=== PATIENT | male | born 1960 | race African-American/Black ===

== ENCOUNTER 2020-10-22 09:40 | Outpatient (REF) | payer OTHER, SELFPAY ==
[2020-10-22 10:40] LABS: Hematocrit 40.1 % (42-52); Hemoglobin 13.1 g/dl (14.0-18.0); Mean Corpuscular HGB Conc 32.7 g/dl (31.0-36.0); Mean Corpuscular Volume 88.9 fL (80-98); Mean Platelet Volume 10.2 fL (9.4-12.4); Platelet Count 223 X10*3/uL (160-400); Red Blood Count 4.51 X10*6/uL (4.60-5.80); Red Cell Distribution Width 12.8 % (11.0-16.0); White Blood Count 4.1 X10*3/uL (4.8-10.8)
[2020-10-22 11:27] LABS: Alanine Aminotransferase 20 U/L (0-40); Alkaline Phosphatase 56 U/L (39-117); Anion Gap 13 (12-20); Aspartate Amino Transferase 17 U/L (5-37); Bilirubin Direct 0.2 mg/dL (0.0-0.5); Bilirubin Total 0.7 mg/dL (0.0-1.0); Blood Urea Nitrogen 12 mg/dL (9-16); Carbon Dioxide 21 mmol/L (22-29); Chloride 109 mmol/L (96-108); Estimated Glomerular Filt Rate > 60; Potassium 4.2 mmol/l (3.3-5.1); Sodium 139 mmol/L (135-145); Total Protein 7.4 g/dL (6.5-8.0)
[2020-10-22 11:36] LABS: Prostate Specific Antigen Scr 2.78 ng/mL (<0.05-4.0)
== END 2020-10-22 09:41 | disposition home or self-care (01) ==
LOC: HO.10HDL 09:40
PROVIDERS: Visit Provider Internal Medicine Gastroenterology
DX: R10.84 Generalized abdominal pain (principal)
CPT/HCPCS: 36415; 80051; 80076; 82565; 84153; 84520; 85027

== ENCOUNTER → 2021-02-24 10:39 | Outpatient (BNVA) | payer OTHER, SELFPAY | PROVIDERS: Visit Provider Urology ==

== ENCOUNTER 2021-05-05 15:12 | Outpatient (REF) | payer OTHER, SELFPAY ==
[2021-05-07 08:12] LABS: Follicle Stimulating Hormone 23.2 mIU/mL (1.6-8.0); Lutenizing Hormone 13.7 mIU/mL (1.5-9.3)
[2021-05-10 09:47] LABS: Testosterone, Total 183 ng/dL (250-1100)
== END 2021-05-05 15:13 | disposition home or self-care (01) ==
LOC: HO.LAB 15:12
PROVIDERS: Visit Provider Urology
DX: E29.1 Testicular hypofunction (principal); N46.9 Male infertility, unspecified; N52.9 Male erectile dysfunction, unspecified
CPT/HCPCS: 36415; 83001; 83002; 84403; 99212

== ENCOUNTER 2021-06-23 15:02 | Outpatient (AMB) | payer OTHER, SELFPAY ==
--- NOTE | 2021-06-23 15:39 | MHC.OFFVIS ---
Intake Intake Visit Reasons: 3 Weeks testo follow up Allergies No Known Allergies Allergy (Verified 08/19/23 09:12) HPI HPI Comments History of Present Illness Details Vidal Baca is a very pleasant . They are a patient of Dr. Dong. At prior visit he had asked about sperm counts Sample today showed no sperm Per the patient he is now in a new relationship would like to have children Will need formal semen analysis This is ordered as well as baseline testosterone Lower Urinary Tract Symptoms: Has been doing well on stay on medication Will need repeat PSA at next visit. Current visit is for further evaluation of, predominate irritative symptoms. Current treatment includes Recent diagnosis for UTI. Treated with antibiotics. . Prostate Symptom Score Moderate (9-19), Bother 3. Symptoms include incomplete emptying, urgency, weak stream, and are progressing. Prior Prostate Score unknown. PSA - PSA in January 2017 4.0 Has had prior prostate biopsy negative 03/08 3.9 09/07 PSA 4.6 07/09 4.6, 11/09 2.8 Erectile dysfunction: He presents today for for continued evaluation and management of erectile dysfunction -has ED prescription. Symptoms have been present for/since years ago. Current treatment includes Viagra/sildenafil - does work. Treatment side effects include none. Prior therapies include oral medications. At this time he experiences erections are partial and adequate for vaginal penetration, that undergo detumesence prior to penetration, JAKI 8-11 Moderate ED. Nocturnal erections do not occur. Currently they are in a stable relationship. Associated problems hypertension Yes diabetes No dyslipidemia Yes depression No stress No decreased libido No pelvic surgery No Overall he is is not satisfied with the current management. Therapeutic plan includes maintaining current therapy [facility] Medical History Hypogonadism in male HTN (hypertension) High cholesterol Gonorrhea Erectile dysfunction History of elevated PSA BPH (benign prostatic hyperplasia) Surgical History History of appendectomy Social History Alcohol intake: current Alcohol intake frequency: holidays/special occasions only Patient Tobacco Use Status: Never used Tobacco Are you DNR?: No Advance Directives: No Advance Directives Information Provided: Yes Review of Systems Const Denies chills and Denies fever(s) Card Reports no additional complaints and Denies syncope Resp Denies cough GI Denies abdominal pain and Denies heartburn Reports as per HPI and Denies change in libido Neuro Denies syncope Psych Denies change in libido Endo Denies change in libido Physical Exam Const General: cooperative, healthy appearing, comfortable and no acute distress Orientation/consciousness: patient oriented x3 HENMT Face and sinus: Yes normal facial exam Mouth: moist mucous membranes Neck Neck: Yes normal visual inspection, Yes full ROM and Yes trachea midline Chest Chest palpation & inspection: normal inspection of the chest Resp Effort & Inspection: normal respiratory effort, able to speak in complete sentences and no respiratory distress GI Inspection: Yes normal to inspection Back/Spine/Pelvis Cervical Spine: normal cervical lordosis Thoracic/Lumbar Spine: thoracic and lumbar spine normal to inspection Skin General skin exam: no rashes or lesions noted Neuro General: patient oriented x3, gait normal, tone normal and moves all extremities Extrem General: Yes normal to inspection and Yes capillary refill normal Assessment & Plan Assessment & Plan (1) Hypogonadism in male: Code(s): E29.1 - Testicular hypofunction Plan Three-month follow-up Medications: New pentoxifylline ER administer with meals 400 mg PO BID 180 tabs 1RF 90 days N46.9 - Male infertility, unspecified Patient Instructions: Imaging studies, laboratory and physical exam results were discussed and reviewed in detail. No major barriers to patient understanding were identified. An opportunity to ask questions regarding the treatment plan was provided. All questions were answered. The patient expressed understanding and agreement with the above treatment plan. The patient is aware they should contact our office by phone for worsening of their current condition or the appearance of new urologic symptoms. Compliance is encouraged with any medications and followup testing that is ordered. It is a privilege to participate in the urologic care of your patient. If you have any questions or concerns regarding treatment for the above conditions, or other urologic issues, please do not hesitate to contact me. The office telephone contact is [phone]. This note is constructed using voice recognition software. While every effort has been made to ensure accuracy presidential helicopter crew chief errors may have been included. Yours sincerely, Dr Sina Holly MD, VAL[facility] - Urology Providers of Expert, Compassionate Care for the Genitourinary System Coding Level of Care Code Est Pt Level 4 (68897) Diagnoses Hypogonadism in male E29.1
== END 2021-06-23 15:56 | disposition home or self-care (01) ==
LOC: HO.HUSH 15:02
PROVIDERS: Visit Provider Urology
DX: E29.1 Testicular hypofunction (principal)
CPT/HCPCS: 99499

== ENCOUNTER → 2021-06-23 15:02 | Outpatient (BNVA) | payer OTHER, SELFPAY | PROVIDERS: Visit Provider Urology ==

== ENCOUNTER → 2021-09-25 10:20 | Outpatient (BNVA) | payer OTHER, SELFPAY | PROVIDERS: Visit Provider Urology ==

== ENCOUNTER 2021-11-04 09:50 | Outpatient (REF) | payer OTHER, SELFPAY | END 2021-11-04 09:51 | disposition home or self-care (01) | LOC: HO.LNP 09:50 | PROVIDERS: Visit Provider Urology | DX: N46.9 Male infertility, unspecified (principal); E29.1 Testicular hypofunction | CPT/HCPCS: 88305; 88313 ==

== ENCOUNTER → 2021-11-24 09:58 | Outpatient (BNVA) | payer OTHER, SELFPAY | PROVIDERS: Visit Provider Urology ==

== ENCOUNTER 2022-01-12 07:53 | Outpatient (REF) | payer OTHER, SELFPAY ==
[2022-01-12 08:39] VITALS: BMI 33.2
[2022-01-12 08:44] VITALS: BP 139/80; PULSE 69; RESP 16; TEMP 36.8; O2SAT 98
[2022-01-12 09:51] VITALS: BP 133/82; PULSE 63; RESP 16; O2SAT 97
--- NOTE | 2022-01-20 09:57 | W.PM.OPN ---
Operative Note Operative Note Date of Service: 01/12/22 Narrative: PreOperative Diagnosis: Male infertility Post Operative Diagnosis: Male infertility Procedure: Left testicular biopsy Surgeon: Dr Sina Holly Anesthesia: Local Indications for procedure: Low sperm count with nonviable forms. Prior right biopsy but appropriate fixative was not used. Recommendation from pathology to repeat an use appropriate fixative. Procedure: After informed consent was verified the patient was brought to the procedure room and placed in a supine position. Anesthesia was administered per protocol. The area was prepped and draped in sterile fashion. Local anesthetic was infiltrated in the cord and on the skin. Skin was opened and dissection performed to the tunica was isolated. The tunica was opened. The testicle was located and stay sutures with 4-0 Vicryl placed. A small incision was made. Material was removed for analysis. Stay sutures were tied down to close the small hole in the testicle Tunica with overlying tissue closed Skin closed with interrupted for chromic sutures Pathology: Testicular biopsy Drains: None
== END 2022-01-12 07:54 | disposition home or self-care (01) ==
LOC: HO.MS 07:53
PROVIDERS: Visit Provider Urology
PROC: (CPT 54505; principal; 2022-01-12 08:00)
DX: N46.9 Male infertility, unspecified (principal)
CPT/HCPCS: 54505; 88305

== ENCOUNTER → 2022-01-20 09:48 | Outpatient (BNVA) | payer OTHER, SELFPAY | PROVIDERS: Visit Provider Urology ==

== ENCOUNTER → 2022-08-17 11:09 | Outpatient (BNVA) | payer OTHER, SELFPAY | PROVIDERS: Visit Provider Urology | DX: N52.9 Male erectile dysfunction, unspecified (principal); N40.0 Benign prostatic hyperplasia without lower urinary tract symptoms | CPT/HCPCS: 99212 ==

== ENCOUNTER 2023-02-07 07:54 | Outpatient (REF) | payer OTHER, SELFPAY ==
[2023-02-07 10:29] LABS: Prostate Specific Antigen 1.88 ng/mL (<0.05-4.0)
[2023-02-12 11:28] LABS: Testosterone, Total 198 ng/dL (250-1100)
== END 2023-02-07 07:55 | disposition home or self-care (01) ==
LOC: HO.LAB 07:54
PROVIDERS: Visit Provider Urology
DX: Z12.5 Encounter for screening for malignant neoplasm of prostate (principal); E29.1 Testicular hypofunction
CPT/HCPCS: 36415; 84153; 84402; 84403

== ENCOUNTER → 2023-02-16 13:10 | Outpatient (BNVA) | payer OTHER, SELFPAY | PROVIDERS: Visit Provider Urology | DX: N52.9 Male erectile dysfunction, unspecified (principal); E29.1 Testicular hypofunction | CPT/HCPCS: 99212 ==

== ENCOUNTER 2023-08-04 16:17 | Outpatient (REF) | payer OTHER, SELFPAY ==
[2023-08-04 16:52] LABS: Hematocrit 38.8 % (42.0-52.0); Hemoglobin 12.9 g/dl (14.0-18.0); Mean Corpuscular HGB Conc 33.2 g/dl (31.0-36.0); Mean Corpuscular Hemoglobin 28.7 pg (27.0-33.0); Mean Corpuscular Volume 86.2 fL (80.0-98.0); Mean Platelet Volume 9.7 fL (9.4-12.4); Platelet Count 222 X10*3/uL (160-400); Red Cell Distribution Width 12.6 % (11.0-16.0); White Blood Count 4.4 X10*3/uL (4.8-10.8)
[2023-08-04 18:17] LABS: Prostate Specific Antigen 1.17 ng/mL (<0.05-4.0)
[2023-08-09 13:58] LABS: Testosterone, Total 167 ng/dL (250-1100)
== END 2023-08-04 16:18 | disposition home or self-care (01) ==
LOC: HO.LAB 16:17
PROVIDERS: Visit Provider Urology
DX: Z12.5 Encounter for screening for malignant neoplasm of prostate (principal); E29.1 Testicular hypofunction
CPT/HCPCS: 36415; 84153; 84403; 85027

== ENCOUNTER 2023-08-19 09:01 | Outpatient (AMB) | payer OTHER, SELFPAY ==
--- NOTE | 2023-08-19 09:09 | MHC.OFFVIS ---
Intake Intake Visit Reasons: 6M PSA/CBC/Testosterone(set) Intake Note: Patient is Present for Follow Up LABS Urology Medication: None Antibiotic Allergies:None Blood Thinners: None Pharmacy: [facility] Allergies No Known Allergies Allergy (Verified 08/19/23 09:12) Medication List - Last Reconciled 08/19/23 by Sina Holly MD amlodipine 10 mg PO DAILY atorvastatin 10 mg PO DAILY carvedilol 3.125 mg PO BID losartan 100 mg PO DAILY lovastatin 40 mg PO DAILY multivitamin 1 tab PO DAILY multivitamin with folic acid 400 mcg (Daily-Isa (with folic acid)) 1 tab PO BEDTIME nifedipine ER 60 mg PO DAILY pantoprazole 40 mg PO DAILY pentoxifylline ER 400 mg PO BID 90 days spironolactone 100 mg PO DAILY spironolactone 50 mg PO DAILY sulfamethoxazole-trimethoprim 800-160 mg (Bactrim DS) 1 tab PO BID 3 days tadalafil 10 mg PO DAILY 90 days tadalafil 20 mg PO Q OTHER DAY PRN 30 days tramadol 50 mg PO Q8H PRN HPI HPI Comments History of Present Illness Details Vidal Baca is a very pleasant [facility] male. He is a patient of Dr. Dong. He is seen for the following urologic issues - lower urinary tract symptoms - erectile dysfunction - male infertility Refill prescription for 10 mg tadalafil daily with 20 mg on demand T a little lower than previously Also with balanitis and needs topical cream Male infertility Prior child in prior relationship He has Wes is trying to have a child with a new partner Baseline evaluation showed low testosterone, high FSH, high LH - 05/11 T 183 FSH 23 LH 13, 02/10 T 200 Fr T 62 P 1.9, 08/13 T 170 Semen analysis performed [facility] - 06/10 no evidence of sperm Testicular biopsy 11/10 right testicle minimal number of seminiferous tubules, 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 Current visit is for further evaluation of, predominate irritative symptoms. Current treatment includes Recent diagnosis for UTI. Treated with antibiotics. . Prostate Symptom Score Moderate (9-19), Bother 3. Symptoms include incomplete emptying, urgency, weak stream, and are progressing. Prior Prostate Score unknown. PSA - PSA in January 2017 4.0 Has had prior prostate biopsy negative 03/08 3.9 09/07 PSA 4.6 07/09 4.6, 11/09 2.8 Erectile dysfunction: He presents today for for continued evaluation and management of erectile dysfunction -has ED prescription. Symptoms have been present for/since years ago. Current treatment includes Viagra/sildenafil - does work. Treatment side effects include none. Prior therapies include oral medications. At this time he experiences erections are partial and adequate for vaginal penetration, that undergo detumesence prior to penetration, JAKI 8-11 Moderate ED. Nocturnal erections do not occur. Currently they are in a stable relationship. Associated problems hypertension Yes diabetes No dyslipidemia Yes depression No stress No decreased libido No pelvic surgery No Overall he is is not satisfied with the current management. Therapeutic plan includes maintaining current therapy [facility] Medical History Hypogonadism in male HTN (hypertension) High cholesterol Gonorrhea Erectile dysfunction History of elevated PSA BPH (benign prostatic hyperplasia) Surgical History History of appendectomy Social History Alcohol intake: current Alcohol intake frequency: holidays/special occasions only Patient Tobacco Use Status: Never used Tobacco Review of Systems Const Denies chills and Denies fever(s) Card Reports no additional complaints and Denies syncope Resp Denies cough GI Denies abdominal pain and Denies heartburn Reports as per HPI and Denies change in libido Neuro Denies syncope Psych Denies change in libido Endo Denies change in libido Physical Exam Const General: cooperative, healthy appearing, comfortable and no acute distress Orientation/consciousness: patient oriented x3 HEENT Face and sinus: Yes normal facial exam Mouth: moist mucous membranes Neck Neck: Yes normal visual inspection, Yes full ROM and Yes trachea midline Chest Chest palpation & inspection: normal inspection of the chest Resp Effort & Inspection: normal respiratory effort, able to speak in complete sentences and no respiratory distress GI Inspection: Yes normal to inspection Back/Spine/Pelvis Cervical Spine: normal cervical lordosis Thoracic/Lumbar Spine: thoracic and lumbar spine normal to inspection Skin General skin exam: no rashes or lesions noted Neuro General: patient oriented x3, gait normal, tone normal and moves all extremities Extrem General: Yes normal to inspection and Yes capillary refill normal Assessment & Plan Assessment & Plan (1) Balanitis: Code(s): N48.1 - Balanitis (2) Erectile dysfunction: Code(s): N52.9 - Male erectile dysfunction, unspecified Plan Balanitis treatment Refill ED meds Orders: Orders Testosterone, Total 6 Months N52.9 - Male erectile dysfunction, unspecified Medications: New clotrimazole-betamethasone 1-0.05 % Apply thin coat 2 times per day 1 appl topical BID 45 grams 0RF 4 weeks N48.1 - Balanitis Patient Instructions: Imaging studies, laboratory and physical exam results were discussed and reviewed in detail. No major barriers to patient understanding were identified. An opportunity to ask questions regarding the treatment plan was provided. All questions were answered. The patient expressed understanding and agreement with the above treatment plan. The patient is aware they should contact our office by phone for worsening of their current condition or the appearance of new urologic symptoms. Compliance is encouraged with any medications and followup testing that is ordered. It is a privilege to participate in the urologic care of your patient. If you have any questions or concerns regarding treatment for the above conditions, or other urologic issues, please do not hesitate to contact me. The office telephone contact is [phone]. This note is constructed using voice recognition software. While every effort has been made to ensure accuracy sand hauler errors may have been included. Yours sincerely, Dr Sina Holly MD, [facility] - Urology Providers of Expert, Compassionate Care for the Genitourinary System Coding Level of Care Code Est Pt Level 4 (18864) Diagnoses Balanitis N48.1 Erectile dysfunction N52.9
== END 2023-08-19 09:42 | disposition home or self-care (01) ==
PROVIDERS: Visit Provider Urology
DX: N48.1 Balanitis (principal); N52.9 Male erectile dysfunction, unspecified
CPT/HCPCS: 99214

== ENCOUNTER → 2023-08-19 09:01 | Outpatient (BNVA) | payer OTHER, SELFPAY | PROVIDERS: Visit Provider Urology | DX: N48.1 Balanitis (principal); N52.9 Male erectile dysfunction, unspecified | CPT/HCPCS: 99212 ==

== ENCOUNTER 2023-12-06 10:01 | Day surgery (SDC) | payer OTHER, SELFPAY ==
--- NOTE | 2023-12-05 10:03 | HO.ANESPROP2 ---
Documented by User: Sheree Booth NP 12/05/23 10:03 HPI - Anesthesia Eval Consult details Narrative: 63yo M for Upper Endoscopy and Colonoscopy [facility], [facility] Active Problems Active Problems: All Active Problems (Updated 08/19/23 @ 09:45 by Sina Holly MD) Balanitis (Acute) Hypogonadism in male (Acute) Male infertility (Acute) Erectile dysfunction (Acute) BPH (benign prostatic hyperplasia) (Acute) Past Medical History Medical History Hypogonadism in male HTN (hypertension) High cholesterol Gonorrhea Erectile dysfunction History of elevated PSA BPH (benign prostatic hyperplasia) Surgical History Surgical History History of appendectomy Social History Social History Alcohol intake: current Alcohol intake frequency: holidays/special occasions only Patient Tobacco Use Status: Never used Tobacco Are you DNR?: No Advance Directives: No Advance Directives Information Provided: Yes Meds Allergies Allergy/AdvReac Type Severity Reaction Status Date / Time No Known Allergies Allergy Verified 08/19/23 09:12 Home Medications Medication Instructions Recorded Confirmed Last Taken Type carvedilol 3.125 mg tablet 3.125 mg PO BID 02/24/21 08/19/23 Unknown History losartan 100 mg tablet 100 mg PO DAILY 02/24/21 08/19/23 Unknown History amlodipine 10 mg tablet 10 mg PO DAILY 05/05/21 08/19/23 Unknown History lovastatin 40 mg tablet 40 mg PO DAILY 05/05/21 08/19/23 Unknown History pantoprazole 40 mg tablet,delayed 40 mg PO DAILY 05/05/21 08/19/23 Unknown History release spironolactone 100 mg tablet 100 mg PO DAILY 05/05/21 08/19/23 Unknown History multivitamin with folic acid 400 1 tab PO BEDTIME 09/25/21 08/19/23 Unknown History mcg tablet (Daily-Isa (with folic acid)) multivitamin 1 tab PO DAILY 01/20/22 08/19/23 Unknown History nifedipine 60 mg tablet,extended 60 mg PO DAILY 01/20/22 08/19/23 Unknown History release 24 hr atorvastatin 10 mg tablet 10 mg PO DAILY 08/13/22 08/19/23 Unknown History spironolactone 50 mg tablet 50 mg PO DAILY 08/13/22 08/19/23 Unknown History Exam Pertinent Lab Results Pertinent Lab Results: Laboratory Tests 08/04/23 16:26 WBC 4.4 L Hgb 12.9 L Hct 38.8 L Plt Count 222 Assessment and Plan Assessment Anesthesia Assessment: Chart Reviewed Documented by User: Victoriano Reddy MD 12/06/23 11:15 [facility] Past Medical History Medical History Hypogonadism in male HTN (hypertension) High cholesterol Gonorrhea Erectile dysfunction History of elevated PSA BPH (benign prostatic hyperplasia) Family History Family history of problems with anesthesia: No Surgical History Surgical History History of appendectomy History of Problems with Anesthesia: No Social History Social History Alcohol intake: current Alcohol intake frequency: holidays/special occasions only Patient Tobacco Use Status: Never used Tobacco Are you DNR?: No Advance Directives: No Advance Directives Information Provided: Yes Meds Allergies Allergy/AdvReac Type Severity Reaction Status Date / Time No Known Allergies Allergy Verified 08/19/23 09:12 Home Medications Medication Instructions Recorded Confirmed Last Taken Type carvedilol 3.125 mg tablet 3.125 mg PO BID 02/24/21 08/19/23 Unknown History losartan 100 mg tablet 100 mg PO DAILY 02/24/21 08/19/23 Unknown History amlodipine 10 mg tablet 10 mg PO DAILY 05/05/21 08/19/23 Unknown History lovastatin 40 mg tablet 40 mg PO DAILY 05/05/21 08/19/23 Unknown History pantoprazole 40 mg tablet,delayed 40 mg PO DAILY 05/05/21 08/19/23 Unknown History release spironolactone 100 mg tablet 100 mg PO DAILY 05/05/21 08/19/23 Unknown History multivitamin with folic acid 400 1 tab PO BEDTIME 09/25/21 08/19/23 Unknown History mcg tablet (Daily-Isa (with folic acid)) multivitamin 1 tab PO DAILY 01/20/22 08/19/23 Unknown History nifedipine 60 mg tablet,extended 60 mg PO DAILY 01/20/22 08/19/23 Unknown History release 24 hr atorvastatin 10 mg tablet 10 mg PO DAILY 08/13/22 08/19/23 Unknown History spironolactone 50 mg tablet 50 mg PO DAILY 08/13/22 08/19/23 Unknown History Assessment and Plan Final Anesthetic Review Family History of Problems with Anesthesia: No History of Problems with Anesthesia: No
--- NOTE | ~2023-12-06 | FL_ITS ---
EXAMINATION: FL Barium Enema CLINICAL INFORMATION: Incomplete colonoscopy COMPARISON: None TECHNIQUE: A mixture of barium and Gastrografin was administered through the rectum via a rectal tube. Spot images were then taken to assess the colon. FINDINGS: The barium traveled from the rectum, throughout the colon, into the cecum, with visualization of the ileocecal valve. No reflux through the valve was identified into the terminal ileum. At least moderate diverticulosis is seen in the distal descending and proximal sigmoid colon. Mild diverticulosis is noted in the right hemicolon. No colonic masses or strictures are noted FLUOROSCOPY TIME: 7 minutes 7 seconds Number of Spot Images: 45 Number of Cine: 4 DOSE AREA PRODUCT: 2244 uGy-m2 (microgray-meter squared) FL/FL barium enema IMPRESSION: 1. No masses or strictures are noted in the colon 2. Moderate diverticulosis of the distal descending and proximal sigmoid colon, and mild diverticulosis of the right hemicolon. 3. Competent ileocecal valve. This procedure was performed by Paulie Horne PA-C, and supervised by Dr. Vasquez
[2023-12-06 10:17] VITALS: BMI 33.9
[2023-12-06 10:44] VITALS: BP 133/76; PULSE 64; RESP 16; TEMP 36.1; O2SAT 99
[2023-12-06] MEDS: Lactated Ringers 1,000 ML 100 ML IVCONT (10:45)
--- NOTE | 2023-12-06 11:19 | HO.ANESPROP2 ---
HPI - Anesthesia Eval Consult details Narrative: for EGD and colonoscopy PMFSH Active Problems Active Problems: All Active Problems Balanitis (Acute) Hypogonadism in male (Acute) Male infertility (Acute) Erectile dysfunction (Acute) BPH (benign prostatic hyperplasia) (Acute) Past Medical History Medical History Hypogonadism in male HTN (hypertension) High cholesterol Gonorrhea Erectile dysfunction History of elevated PSA BPH (benign prostatic hyperplasia) Family History Family history of problems with anesthesia: No Surgical History Surgical History History of appendectomy History of Problems with Anesthesia: No Social History Social History Alcohol intake: current Alcohol intake frequency: holidays/special occasions only Patient Tobacco Use Status: Never used Tobacco Are you DNR?: No Advance Directives: No Advance Directives Information Provided: Yes Meds Allergies Allergy/AdvReac Type Severity Reaction Status Date / Time No Known Allergies Allergy Verified 08/19/23 09:12 Active Medications: Current Medications Fentanyl (Fentanyl Citrate/Pf 100 Mcg/2 Ml Vial) 50 mcg IVPUSH Q5M PRN; Protocol PRN Reason: Pain, Severe (Pain Scale 7-10) Lactated Ringer's (Lr) 1,000 mls @ 100 mls/hr IVCONT .Q10H MASTER Last Admin: 12/06/23 10:45 Dose: 100 mls/hr Ondansetron HCl (Ondansetron Hcl 4 Mg/2 Ml Vial) 4 mg IVPUSH ONCE PRN PRN Reason: Nausea and Vomiting Home Medications Medication Instructions Recorded Confirmed Last Taken Type carvedilol 3.125 mg tablet 3.125 mg PO BID 02/24/21 08/19/23 Unknown History losartan 100 mg tablet 100 mg PO DAILY 02/24/21 08/19/23 Unknown History amlodipine 10 mg tablet 10 mg PO DAILY 05/05/21 08/19/23 Unknown History lovastatin 40 mg tablet 40 mg PO DAILY 05/05/21 08/19/23 Unknown History pantoprazole 40 mg tablet,delayed 40 mg PO DAILY 05/05/21 08/19/23 Unknown History release spironolactone 100 mg tablet 100 mg PO DAILY 05/05/21 08/19/23 Unknown History multivitamin with folic acid 400 1 tab PO BEDTIME 09/25/21 08/19/23 Unknown History mcg tablet (Daily-Isa (with folic acid)) multivitamin 1 tab PO DAILY 01/20/22 08/19/23 Unknown History nifedipine 60 mg tablet,extended 60 mg PO DAILY 01/20/22 08/19/23 Unknown History release 24 hr atorvastatin 10 mg tablet 10 mg PO DAILY 08/13/22 08/19/23 Unknown History spironolactone 50 mg tablet 50 mg PO DAILY 08/13/22 08/19/23 Unknown History Exam Height,Weight and Vital Signs: Height 5 ft 6 in Weight 95.254 kg Last Vital Signs Temp 96.9 F 12/06/23 10:44 Pulse 64 12/06/23 10:44 Resp 16 12/06/23 10:44 BP 133/76 12/06/23 10:44 Pulse Ox 99 12/06/23 10:44 O2 Del Method Room Air 12/06/23 10:44 Airway Mallampati Class: II Partial: Upper and Lower Loose/Missing/Broken Teeth: Yes, Upper and Lower Heart: ok Lungs: ok Assessment and Plan Assessment Anesthesia Assessment: Anesthesia Plan Discussed and Chart Reviewed Final Anesthetic Review Family History of Problems with Anesthesia: No History of Problems with Anesthesia: No NPO: Yes ASA Class: II Final Preanesthetic Review: No Changes in Pt Med Stat, Meds/Allgs Chart Reviewed, Consent Obtained/Reviewed and Anes Risks/Benef Reviewed Patient Risk: Intermediate Procedure Risk: Intermediate Anesthetic Plan Anesthetic Plan: Agree w/ Assess. and Plan and TIVA Disposition: Standard PACU
--- NOTE | 2023-12-06 11:43 | P.HPSUR_ITS ---
Pre-Procedural Eval Section A Date of Service: 12/06/23 Section B Chief Complaint: Encounter for screening for malignant neoplasm of Details of Present Illness: see H&P no changes Relevant Family History (Specify if Yes): No Relevant Social History: None Present Medications: see Short Stay Collaborative assessment Medical History: No relevant PMH History of Previous Operations: No relevant previous surgery Allergies: Allergies Allergy/AdvReac Type Severity Reaction Status Date / Time No Known Allergies Allergy Verified 08/19/23 09:12 Review of Systems Sugical H&P ROS: Negative: Constitution, Cardiovascular, Respiratory, Neurolo gical, Psychiatric, Hem-Onc, Allergic/Immunologic, Gastrointestinal, Genitourinary, Musculoskeletal, Integumentary, Endocrine and Eyes/Ears/Nose/Throat Exam Surgical H&P Exam: Normal: HEENT, Normal: Heart, Normal: Lungs, Normal: Extremities, Normal: Abdomen, Normal: Skin and Normal: Neurological Plan Diagnosis/Plan: Unchanged I have reviewed the history and physical and performed a pertinent physical examination on my patient. No changes have occurred unless specified. Time Spent With Patient Time: Total time managing care of this patient today ____ minutes.
[2023-12-06 12:47] VITALS: BP 117/76; PULSE 70; RESP 16; TEMP 36.3; O2SAT 97
[2023-12-06 13:02] VITALS: BP 140/77; PULSE 58; RESP 16; O2SAT 95
--- NOTE | 2023-12-06 13:08 | OP_ITS ---
DATE OF SERVICE: 12/06/2023 SURGEON: Huber Levy MD INDICATIONS: Colon cancer screening and gastroesophageal reflux disease. PREOPERATIVE DIAGNOSIS: POSTOPERATIVE DIAGNOSIS: PROCEDURE PERFORMED: Colonoscopy to the right colon, upper endoscopy with biopsy. ESTIMATED BLOOD LOSS: COMPLICATIONS: ANESTHESIA: Monitored anesthesia care. ASSISTANTS: SPECIMENS: DESCRIPTION OF PROCEDURE: A history and physical was performed. The risks and benefits of the procedure were explained to the patient. Informed consent was obtained. The patient was placed in the left lateral decubitus position. A digital rectal exam was performed and was found to be normal. The Olympus pediatric video colonoscope was introduced into the rectum and advanced to the right colon. The scope could not be advanced to the cecum due to looping in the sigmoid despite application of abdominal wall pressure and repositioning of the patient. Examination was performed. The scope was removed. He tolerated the procedure well and was taken to the recovery area in stable condition. FINDINGS: There was some liquid stool coating the mucosa, mainly in the transverse colon and sigmoid. This was washed and suctioned. No polyps were identified. There was a 20 mm lipoma in the vicinity of the hepatic flexure. Retroflexed examination showed some internal hemorrhoids. It was estimated that 95% of the colon was examined. Upper endoscopy: 1. Esophagus: The esophagus was normal. There was no esophagitis. Biopsies were obtained from the EG junction. 2. Stomach: The stomach showed no evidence of masses or ulcers. There were multiple benign less than 5 mm appearing polyps in the body and fundus consistent with fundic gland polyps. Antral biopsies were obtained to rule out H pylori. 3. Duodenum: The bulb and 2nd portion were normal. IMPRESSION: 1. Normal colonoscopy to the right colon. 2. Gastroesophageal reflux disease. RECOMMENDATION: 1. Follow up the biopsy results. 2. Barium enema if the patient is agreeable for further evaluation of the cecal area. 3. Repeat colonoscopy is recommended in 10 years for average risk individuals. MD BERTIN Sanders/WILLIAN / [id number]
[2023-12-06 13:17] VITALS: BP 140/82; PULSE 68; RESP 16; O2SAT 97
[2023-12-06 13:32] VITALS: BP 137/70; PULSE 67; RESP 16; O2SAT 97
[2023-12-06 14:39] VITALS: BP 149/81; PULSE 56; RESP 16; TEMP 36.3; O2SAT 96
== END 2023-12-06 15:17 | disposition home or self-care (01) ==
PROVIDERS: PCP Internal Medicine; Visit Provider Internal Medicine Gastroenterology
PROC: (CPT 45378; principal; 2023-12-06 11:40)
DX: Z12.11 Encounter for screening for malignant neoplasm of colon (principal); K64.8 Other hemorrhoids; D17.5 Benign lipomatous neoplasm of intra-abdominal organs; K59.00 Constipation, unspecified; K21.9 Gastro-esophageal reflux disease without esophagitis; K31.7 Polyp of stomach and duodenum; N40.0 Benign prostatic hyperplasia without lower urinary tract symptoms; I10 Essential (primary) hypertension; E78.00 Pure hypercholesterolemia, unspecified; Z79.899 Other long term (current) drug therapy
CPT/HCPCS: 45378; 43239; 74270; 88305; 88342; J1596; J2704

== ENCOUNTER → 2023-12-06 13:20 | Outpatient (BNV) | payer OTHER, SELFPAY | PROVIDERS: PCP Internal Medicine; Visit Provider Radiology Diagnostic Radiology | DX: Z53.9 Procedure and treatment not carried out, unspecified reason (principal) | CPT/HCPCS: 74270 ==

== ENCOUNTER 2025-01-18 09:32 | Outpatient (AMB) | payer OTHER, SELFPAY ==
--- NOTE | 2025-01-18 09:34 | A.OFFVIS_ITS ---
Intake Visit Reasons: 1Y Review Follow up(multiple R/S Due to no lab) Intake Note: Pt presents to the office today for a 1 year review follow up due to multiple r/s for labs not being done. Allergies No Known Allergies Allergy (Verified 01/18/25 09:34) HPI Comments Details: Vidal Baca is a very pleasant [facility] male. He is a patient of Dr. Dong. He is seen for the following urologic issues - lower urinary tract symptoms - erectile dysfunction - male infertility Last seen 08/10/2023 Needs refill for erectile dysfunction meds Vidal showed me photos of his new baby boy DNA has confirmed it is his child Male infertility Prior child in prior relationship He has Wes is trying to have a child with a new partner Baseline evaluation showed low testosterone, high FSH, high LH - 05/11 T 183 FSH 23 LH 13, 02/10 T 200 Fr T 62 P 1.9, 08/13 T 170 Semen analysis performed [facility] - 06/10 no evidence of sperm Testicular biopsy 11/10 right testicle minimal number of seminiferous tubules, 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 Current visit is for further evaluation of, predominate irritative symptoms. Current treatment includes Recent diagnosis for UTI. Treated with antibiotics. . Prostate Symptom Score Moderate (9-19), Bother 3. Symptoms include incomplete emptying, urgency, weak stream, and are progressing. Prior Prostate Score unknown. PSA - PSA in January 2017 4.0 Has had prior prostate biopsy negative 03/08 3.9 09/07 PSA 4.6 07/09 4.6, 11/09 2.8 Erectile dysfunction: He presents today for for continued evaluation and management of erectile dysfunction -has ED prescription. Symptoms have been present for/since years ago. Current treatment includes Viagra/sildenafil - does work. Treatment side effects include none. Prior therapies include oral medications. At this time he experiences erections are partial and adequate for vaginal penetration, that undergo detumesence prior to penetration, JAKI 8-11 Moderate ED. Nocturnal erections do not occur. Currently they are in a stable relationship. Associated problems hypertension Yes diabetes No dyslipidemia Yes depression No stress No decreased libido No pelvic surgery No Overall he is is not satisfied with the current management. Therapeutic plan includes maintaining current therapy [facility] Medical History Hypogonadism in male HTN (hypertension) High cholesterol Gonorrhea Erectile dysfunction History of elevated PSA BPH (benign prostatic hyperplasia) Surgical History History of appendectomy Social History Alcohol intake: current Alcohol intake frequency: holidays/special occasions only Patient Tobacco Use Status: Never used Tobacco Review of Systems Const Denies chills and Denies fever(s) Card Reports no additional complaints and Denies syncope Resp Denies cough GI Denies abdominal pain and Denies heartburn Reports as per HPI and Denies change in libido Neuro Denies syncope Psych Denies change in libido Endo Denies change in libido Physical Exam Const General: cooperative, healthy appearing, comfortable and no acute distress Orientation/consciousness: patient oriented x3 HEENT Face and sinus: Yes normal facial exam Mouth: moist mucous membranes Neck Neck: Yes normal visual inspection, Yes full ROM and Yes trachea midline Chest Chest palpation & inspection: normal inspection of the chest Resp Effort & Inspection: normal respiratory effort, able to speak in complete sentences and no respiratory distress GI Inspection: Yes normal to inspection Back/Spine/Pelvis Cervical Spine: normal cervical lordosis Thoracic/Lumbar Spine: thoracic and lumbar spine normal to inspection Skin General skin exam: no rashes or lesions noted Neuro General: patient oriented x3, gait normal, tone normal and moves all extremities Extrem General: Yes normal to inspection and Yes capillary refill normal Assessment & Plan Assessment & Plan (1) Erectile dysfunction: Code(s): N52.9 - Male erectile dysfunction, unspecified Category: Medical (2) Male infertility: Comment: Biopsy with hypospermatogenesis Code(s): N46.9 - Male infertility, unspecified Category: Medical Plan Twelve month follow-up PSA Medications: Refilled tadalafil 20 mg PO Q OTHER DAY 30 days PRN 30 tabs 1RF sexual activity N52.9 - Male erectile dysfunction, unspecified tadalafil 10 mg PO DAILY 90 days 90 tabs 1RF sexual activity N52.01 - Erectile dysfunction due to arterial insufficiency Patient Instructions: This note is constructed using voice recognition software. While every effort has been made to ensure accuracy order to delivery supervisor errors may have been included. Imaging studies, laboratory and physical exam results were discussed and reviewed in detail. No major barriers to patient understanding were identified. An opportunity to ask questions regarding the treatment plan was provided. All questions were answered. The patient expressed understanding and agreement with the above treatment plan. The patient is aware they should contact our office by phone for worsening of their current condition or the appearance of new urologic symptoms. Compliance is encouraged with any medications and followup testing that is ordered. It is a privilege to participate in the urologic care of your patient. If you have any questions or concerns regarding treatment for the above conditions, or other urologic issues, please do not hesitate to contact me. The office telephone contact is [phone]. Sincerely, Dr Sina Holly MD, [facility] - Urology Compassionate Specialist Care for the Genitourinary System Coding Level of Care Code Est Pt Level 4 (60583) Diagnoses Erectile dysfunction N52.9 Male infertility N46.9
--- OUTSIDE RECORDS SUMMARY | 2025-01-18 10:19 | XMS_ITS | Clinical Summary ---
Author Organization [address] [facility] Address [address] [place] [address] Phone Care Team Providers Care Inspector Open Die Name Role Phone Andrea Lees MD Primary Care Provider [phone] Allergies Active Allergy Reactions Criticality Noted Date Comments Codeine Nausea And Vomiting 08/06/2022 Oxycodone-Acetaminophen Nausea And Vomiting Medications atorvastatin calcium (LIPITOR ORAL) Take 10 mg by mouth. Active multivitamin (Multiple Vitamins) tablet Take by mouth. Active amLODIPine (NORVASC) 10 mg tablet Take 10 mg by mouth daily. Active carvediloL (COREG) 3.125 mg tablet Take 3.125 mg by mouth 2 times daily (with meals). Active losartan (COZAAR) 100 mg tablet Take 100 mg by mouth daily. Active mupirocin (BACTROBAN) 2 % ointment Apply topically to wound dialy 4 Active pantoprazole (PROTONIX) 20 mg EC tablet Take 1 Tablet by mouth daily. Active silver sulfADIAZINE (SILVADENE, SSD) 1 % cream Apply topically to nail bed daily 4 Active spironolactone (ALDACTONE) 50 mg tablet Take 50 mg by mouth daily. Active diazePAM (VALIUM) 5 mg tablet Take 1 tablet (5 mg total) by mouth every 12 (twelve) hours if needed for muscle spasms (pain) for up to 8 doses. Max Daily Amount: 10 mg 8 tablet 4 Active Active Problems Problem Noted Date Diagnosed Date Abnormal stress test 08/11/2022 Overview (10/16/2024): Last Assessment & Plan: Patient was sent for stress test that came back as abnormal due to electrical changes without significant symptoms. Patient has multiple risk for coronary artery disease and complaints of chest discomfort that he says when he has is a pulling sensation its not necessarily exertional in nature. Because of this abnormality which I think is probably secondary to LVH from hypertension unguinal send him for stress echocardiogram. If the stress echocardiogram is normal no further cardiac testing is necessary at this time. Chest pain 08/06/2022 Overview (10/16/2024): Last Assessment & Plan: Patient with vague chest discomfort. We will plan on a stress echocardiogram. His routine stress test showed ST changes which most likely are secondary to LVH if this stress echocardiogram is normal then no further cardiac evaluation is necessary. HLD (hyperlipidemia) 08/06/2022 Palpitations 08/06/2022 Overview (10/16/2024): Last Assessment & Plan: Patient states that the palpitations that he was complaining about are no longer an issue Constipated 06/13/2012 Other specified symptoms and signs involving the digestive system and abdomen 09/26/2006 Abdominal pain, left lower quadrant 09/26/2006 Heartburn 09/26/2006 Abdominal pain, generalized 09/09/2006 Essential hypertension, benign 06/29/2006 Surgical History Surgery Date Site/Laterality Comments APPENDECTOMY 2015 PROCEDURE: HISTORICAL APPENDECTOMY Medical History Medical History Date Comments GERD without esophagitis DX:GERD without esophagitis Prostate enlargement DX:Prostate enlargement Anxiety disorder, unspecified DX :Anxiety disorder, unspecified Body mass index (BMI) of 35. 0 to 35.9 in adult DX:Body mass index (BMI) of 35.0 to 35.9 in adult Hypertensive chronic kidney disease with stage 1 through stage 4 chronic kidney disease, or unspecified chronic kidney disease 08/06/2022 DX:Hypertensive chronic kidn ey disease with stage 1 through stage 4 chronic kidney disease, or unspecified chronic kidney disease Anemia DX:Anemia Hyperglycemia DX:Hyperglycemia Other chest pain DX:Other chest pain BPH (benign prostatic hyperplasia) DX:BPH (benign prostatic hyperplasia) Acid reflux DX:Acid reflux IFG (impaired fasting glucose) D X:IFG (impaired fasting glucose) Family History Medical History Relation Name Comments Hypertension Father Hypertension Mother Relation Name Status Comments Father Mother Social History Tobacco Use Types Packs/Day Years Used Date Smoking Tobacco: Never Smokeless Tobacco: Never Alcohol Use Standard Drinks/Week Comments Yes 0 (1 standard drink = 0.6 oz pur e alcohol) Sex and Gender Information Value Date Recorded Sex Assigned at Not on file Legal Sex Male 2:21 PM EST Gender Identity Not on file Sexual Orientation Not on file Obstetrics History Last Filed Vital Signs Vital Sign Reading Time Taken Comments Blood Pressure 132/65 10/17/2024 2:39 AM EST Pulse 55 10/17/2024 2:39 AM EST Temperature 36.6 ??C (97.9 ??F) 10/17/2024 2:39 AM ES T Respiratory Rate 18 10/17/2024 2:39 AM EST Oxygen Saturation 99% 10/17/2024 2:39 AM EST Inhaled Oxygen Concentration - - Weight 93 kg (205 lb) 10/17/2024 12:51 AM EST Height 167.6 cm (5' 6 ) 10/17/2024 12:51 AM EST Body Mass Index 33.09 10/17/2024 12:51 AM EST Plan of Treatment Health Maintenance Due Date Last Done Comments Zoster Vaccines (1 of 2) 2011 Pneumococcal Vaccine: 50+ Years (2 of 2 - PCV) 07/23/2011 07/23/2010 DTaP,Tdap,and Td Vaccines (2 - Td or Tdap) 06/27/2019 06/27/2009 Cholesterol Screening (Lipid Panel) 10/20/2022 Colorectal Cancer Screening: Colonoscopy 10/20/2022 Depression Screening 10/20/2022 HIV Screening 10/20/2022 Hepatitis C Screening 10/20/2022 Social Influencers of Health Screening 10/20/2022 Hypertension/CHF/CAD Annual BMP Blood Test 10/17/2025 10/17/2024, 06/22/2006 RSV Immunization Patients 60+ Years Old (1 - 1-dose 75+ series) 2036 Pneumococcal Vaccine: Pediatrics (0 to 5 Years) and At-Risk Patients (6 to 64 Years) Aged Out 07/23/2010 No longer eligible based on patient's age to complete this topic COVID-19 Vaccine Completed 08/04/2024, , 09/03/2022, Additional history exists Influenza Vaccine Completed 08/04/2024, , 09/03/2022, Additional history exists HIB Vaccines Aged Out No longer eligi ble based on patient's age to complete this topic HPV Vaccines Aged Out No longer eligi ble based on patient's age to complete this topic Hepatitis A Vaccines Aged Out No long er eligible based on patient's age to complete this topic Hepatitis B Vaccines Aged Out No long er eligible based on patient's age to complete this topic IPV Vaccines Aged Out No longer eligi ble based on patient's age to complete this topic MMR Vaccines Aged Out No longer eligi ble based on patient's age to complete this topic Meningococcal ACWY Vaccine Aged Out N o longer eligible based on patient's age to complete this topic Meningococcal B Vacine Aged Out No lo nger eligible based on patient's age to complete this topic RSV Immunization Patients Under 20 months Aged Out No longer eligible based on patient's age to complete this topic Varicella Vaccines Aged Out No longer eligible based on patient's age to complete this topic Procedures Procedure Name Priority Date/Time Associated Diagnosis Comments COMPREHENSIVE METABOLIC PANEL STAT 10/17/2024 12:59 AM EST from Last 3 Months or Most Recently Relevant to Health Maintenance Results * (ABNORMAL) Comprehensive metabolic panel (10/17/2024 12:59 AM EST) Sodium 142 133 - 145 mmol/L LAB CHEMISTRY METHOD 10/17/2024 1:31 AM [facility] Potassium 3.3(L) 3.5 - 5.5 mmol/L LAB CHEMISTRY METHOD 10/17/2024 1:31 AM [facility] Chloride 111(H) 96 - 110 mmol/L LAB CHEMISTRY METHOD 10/17/2024 1:31 AM [facility] CO2 26 21 - 32 mmol/L LAB CHEMISTRY METHOD 10/17/2024 1:31 AM [facility] Anion Gap 5 3 - 11 LAB CHEMISTRY METHOD 10/17/2024 1:31 AM [facility] Glucose 130(H) 70 - 100 mg/dL LAB CHEMISTRY METHOD 10/17/2024 1:31 AM [facility] BUN 15 5 - 25 mg/dL LAB CHEMISTRY METHOD 10/17/2024 1:31 AM [facility] Creatinine 1.52(H) 0.70 - 1.30 mg/dL LAB CHEMISTRY METHOD 10/17/2024 1:31 AM [facility] eGFR 51(L) >=60 mL/min/1. 73m2 LAB CHEMISTRY METHOD 10/17/2024 1:31 AM [facility] Comment:Calculation based on the??Chronic Kidney Disease Epidemiology Collaboration (CKD-EPI) equation refit??without adjustment for race. BUN/Creatinine Ratio 9.9 LAB CHEMISTRY METHOD 10/17/2024 1:31 AM [facility] Calcium 8.1(L) 8.5 - 10.5 mg/dL LAB CHEMISTRY METHOD 10/17/2024 1:31 AM [facility] AST (SGOT) 18 10 - 42 unit/L LAB CHEMISTRY METHOD 10/17/2024 1:31 AM [facility] ALT (SGPT) 25 10 - 60 unit/L LAB CHEMISTRY METHOD 10/17/2024 1:31 AM [facility] Alkaline Phosphatase 66 42 - 121 unit/L LAB CHEMISTRY METHOD 10/17/2024 1:31 AM [facility] Total Protein 6.8 6.0 - 8.0 g/dL LAB CHEMISTRY METHOD 10/17/2024 1:31 AM [facility] Albumin 3.3 3.2 - 5.0 g/dL LAB CHEMISTRY METHOD 10/17/2024 1:31 AM [facility] Total Bilirubin 0.5 0.0 - 1.4 mg/dL LAB CHEMISTRY METHOD 10/17/2024 1:31 AM [facility] Blood Venous blood specimen / Unknown Venipuncture / Unknown 10/17/2024 12:59 AM EST 10/17/2024 1:04 AM EST us Maciel Moulton MD LAB BLOOD ORDERABLES Final Res ult [facility] [address] [place] [address], [place] [phone] from Last 3 Months or Most Recently Relevant to Health Maintenance Insurance [facility] MEDICAID ADVANTAGE Care Teams Inspector Open Die Relationship Specialty Start Date End Date Andrea Lees MD [address] [place] [address] PCP - General Internal Medicine 08/11/22
--- OUTSIDE RECORDS SUMMARY | 2025-01-18 10:19 | XMS_ITS ---
Author Organization [facility] Address [address] [place] [address] Care Team Providers Care Marine Consultant Name Role Phone Jamaal HAWTHORNE, Ludwig Primary Care Provider Huber Lebron Jr REASON FOR VISIT pathology/x-ray Encounters Encounter Location Date Provider Diagnosis [facility] [address] [place] [id number] 12/15/2023 Huber Levy Jr PLAN OF TREATMENT No Information
--- OUTSIDE RECORDS SUMMARY | 2025-01-18 10:19 | XMS_ITS | Encounter Summary ---
Author Organization [facility] Address [address] [address] Phone Care Team Providers Care Stringer Machine Tender Name Role Phone Ludwig Hinton MD Primary Care Provider [phone] Encounter Details Date Type Department Care Team (Late st Contact Info) Description 12/16/2024 Office Communication [facility] [address] [address] Jayne Smith ARNP [address] [address] Social History Tobacco Use Types Packs/Day Years Used Date Smoking Tobacco: Never Smokeless Tobacco: Never Alcohol Use Standard Drinks/Week Comments Yes 0 (1 standard drink = 0.6 oz pure alcohol) Alcoholic Drinks/day: Occasional social drink Sex and Gender Information Value Date Recorded Sex Assigned at Not on file Legal Sex Male 5:19 PM EST Gender Identity Not on file Sexual Orientation Not on file documented as of this encounter Plan of Treatment Upcoming Encounters Date Type Department Care Team (Late st Contact Info) Description 02/07/2025 8:15 AM EDT Office [facility] [address] [address] Jayne Smith ARNP [address] [address] 02/19/2025 9:45 AM EDT [facility] [address] [address] Jayne Smith ARNP [address] [address] documented as of this encounter Visit Diagnoses Not on filedocumented in this encounter Care Teams Stringer Machine Tender Relationship Specialty Start Date End Date Ludwig Hinton MD [address] [place] [address] PCP - General Internal Medicine 04/10/24 documented as of this encounter
--- OUTSIDE RECORDS SUMMARY | 2025-01-18 10:20 | XMS_ITS | Clinical Summary ---
Author Organization [facility] Address [address] [place] [phone] Phone Care Team Providers Care Social Human Services Assistants Name Role Phone Ludwig Hinton MD Primary Care Provider Allergies Active Allergy Reactions Criticality Noted Date Comments Oxycodone-Acetaminophen 04/29/2021 Medications Multiple Vitamin (Multivitamin Iron-Free) tablet Take 1 tablet by mouth 1 (one) time each day 1 Active pantoprazole (PROTONIX) 40 MG EC tablet Take 1 tablet by mouth 1 (one) time each day 1 Active sildenafil (VIAGRA) 100 MG tablet Take 1 tablet by mouth 1 (one) time each day 0 Active ibuprofen (ADVIL,MOTRIN) 600 MG tablet Take 600 mg by mouth every 6 (six) hours if needed 1 Active lovastatin (MEVACOR) 40 MG tablet Take 1 tablet (40 mg total) by mouth at bed time 30 tablet 5 2 Active amLODIPine (NORVASC) 10 MG tablet TAKE 1 TABLET(10 MG) BY MOUTH 1 TIME EACH DAY 30 tablet 5 3 Active atorvastatin (LIPITOR) 80 MG tablet Take 80 mg by mouth 3 11/23/19 26 Active losartan (COZAAR) 100 MG tabletIndications :Chronic kidney disease, stage 2 (mild),Essential (primary) hypertension Take 1 tablet (100 mg total) by mouth 1 (one) time each day 90 tablet 3 5 12/16/19 26 Active carvedilol (COREG) 3.125 MG tabletIndications :Chronic kidney disease, stage 2 (mild),Essential (primary) hypertension Take 1 tablet (3.125 mg total) by mouth in the morning and 1 tablet (3.125 mg total) in the evening. Take with meals. 180 tablet 3 5 Active spironolactone (Aldactone) 50 MG tabletIndications :Chronic kidney disease, stage 2 (mild),Essential (primary) hypertension Take 1 tablet (50 mg total) by mouth 1 (one) time each day 30 tablet 5 5 06/14/20 25 Active Active Problems Problem Noted Date Diagnosed Date Vitamin D deficiency, not otherwise specified Chronic kidney disease, stage 2 (mild) Abnormal results of function studies of other organs and systems 12/15/2021 Bloating 12/15/2021 Gastro-esophageal reflux disease without esophag itis 12/15/2021 Generalized abdominal pain 12/15/2021 Left upper quadrant pain 12/15/2021 Benign prostatic hyperplasia 04/29/2021 Hypertensive renal disease 04/29/2021 Hypertensive disorder 04/29/2021 Hyperuricemia 04/29/2021 Hypokalemia 04/29/2021 Simple renal cyst 04/29/2021 Essential (primary) hypertension 04/29/2021 Resolved Problems Problem Noted Date Diagnosed Date Resolved Date Chronic kidney disease stage 3 04/29/2021 04/10/2024 Stage 3a chronic kidney disease 04/29/2021 04/10/2024 Encounters Date Type Department Care Team Description 12/16/2024 Office Communication [facility] [address] [phone] Jayne Smith ARNP 12/12/2024 8:30 AM EST Office Visit [facility] [address] [facility] [address] [place] [phone] Jayne Smith ARNP Chronic kidney disease, stage 2 (mild) (Primary Dx); Essential (primary) hypertension; Vitamin D deficiency, not otherwise specified 10/21/2024 Orders Only [facility] [address] [place] [phone] Jayne Smith ARNP Chronic kidney disease, stage 2 (mild); Essential (primary) hypertension from Last 3 Months Immunizations Name Administration Dates Next Due Influenza, Unspecified 07/22/2021,09/03/2020 Pfizer SARS-COV-2 09/03/2021,12/22/2020,12/01/19 21 Pneumococcal Polysaccharide 07/23/2010 Td, Unspecified 06/27/2009 Family History Medical History Relation Comments Hypertension Father Hypertension Mother Stroke Mother Relation Status Comments Father Mother Social History Tobacco [...] on file Sexual Orientation Not on file Last Filed Vital Signs Vital Sign Reading Time Taken Comments Blood Pressure 140/88 12/12/2024 8:39 AM EST Pulse 61 12/12/2024 8:39 AM EST Temperature - - Respiratory Rate - - Oxygen Saturation 99% 12/12/2024 8:39 AM EST Inhaled Oxygen Concentration - - Weight 97.1 kg (214 lb) 12/12/2024 8:39 AM EST Height 167.6 cm (5' 6 ) 09/18/2019 12:01 PM EDT Body Mass Index 34.54 09/18/2019 12:01 PM EDT Plan of Treatment Upcoming Encounters Date Type Department Care Team (Late st Contact Info) Description 02/07/2025 8:15 AM EDT Office Visit [facility] [address] [phone] Jayne Smith ARNP [address] [phone] 02/19/2025 9:45 AM EDT Office Visit [facility] [address] [phone] Jayne Smith ARNP [address] [phone] Health Maintenance Due Date Last Done Comments Colorectal Cancer Screening: Annual FOBT 2010 Colorectal Cancer Screening: Colonoscopy 2010 Colorectal Cancer Screening: Sigmoidoscopy 2010 Pneumococcal Vaccine: Pediatrics (0 to 5 Years) and At-Risk Patients (6 to 64 Years) (2 of 2 - PCV) 07/23/2011 07/23/2010 Influenza Vaccine (#1) 2024 3, 09/03/2022, 09/03/2021, Additional history exists Hepatitis B Vaccine Aged Out No longe r eligible based on patient's age to complete this topic Procedures Procedure Name Priority Date/Time Associated Diagnosis Comments URINE ALBUMIN / CREATININE RATIO Routine 12/12/2024 9:13 AM EST Chronic kidney disease, stage 2 (mild) Essential (primary) hypertension MAGNESIUM Routine 12/12/2024 9:13 AM EST Chronic kidney disease, stage 2 (mild) Essential (primary) hypertension RENAL FUNCTION PANEL Routine 12/12/2024 9:13 AM EST Chronic kidney disease, stage 2 (mild) Essential (primary) hypertension PTH, INTACT Routine 12/12/2024 9:13 AM EST Chronic kidney disease, stage 2 (mild) Essential (primary) hypertension from Last 3 Months Results * Urine Albumin / Creatinine Ratio (12/12/2024 9:13 AM EST) Creatinine, Ur 153.9 Not Estab. mg/dL [facility] Albumin, Urine 40.6 Not Estab. ug/mL [facility] Albumin/Creatin ine Ratio 26 0 - 29 mg/g creat [facility] Comment: ? Normal: ?0 - ??29 ? Moderately increased: 30 - 300 ? Severely increased: ? >300 Urine (Urine, Clean Catch) 12/12/2024 9:13 AM EST 12/12/2024 [facility] LAB URINE ORDERABLES Final Result Performing Organization Address [facility] Co de Phone Number [facility] [address] [place] [address] * PTH, intact (12/12/2024 9:13 AM EST) PTH 47 15 - 65 pg/mL [facility] Blood (Blood, Venous) 12/12/2024 9:13 AM EST 12/12/2024 [facility] LAB BLOOD ORDERABLES Final Result Performing Organization Address [facility] de Phone Number [facility] [address] [place] [phone] * Magnesium (12/12/2024 9:13 AM EST) Magnesium 1.9 1.6 - 2.3 mg/dL [facility] Blood (Blood, Venous) 12/12/2024 9:13 AM EST 12/12/2024 [facility] LAB BLOOD ORDERABLES Final Result Performing Organization Address [facility] de Phone Number [facility] [address] [place] [phone] * (ABNORMAL) Renal function panel (12/12/2024 9:13 AM EST) Glucose 121(H) 70 - 99 mg/dL [facility] BUN 11 8 - 27 mg/dL [facility] Creatinine 1.11 0.76 - 1.27 mg/dL [facility] eGFR CKD-EPI CR 2020 75 >59 mL/min/1.7 3 [facility] BUN/Creatinine Ratio 10 10 - 24 [facility] Sodium 139 134 - 144 mmol/L [facility] Potassium 3.8 3.5 - 5.2 mmol/L [facility] Chloride 101 96 - 106 mmol/L [facility] Bicarbonate (CO2) 20 20 - 29 mmol/L [facility] Calcium 8.9 8.6 - 10.2 mg/dL [facility] Albumin 4.2 3.9 - 4.9 g/dL [facility] Phosphorus 3.1 2.8 - 4.1 mg/dL [facility] Blood (Blood, Venous) 12/12/2024 9:13 AM EST 12/12/2024 Jayne Smith [facility] LAB BLOOD ORDERABLES Final Result [facility] [address] [place] [phone] from Last 3 Months Insurance [facility] [employer] Care Teams Social Human Services Assistants Relationship Specialty Start Date End Date Ludwig Hinton MD [facility] [place], [place] PCP - General Internal Medicine 04/10/24
--- OUTSIDE RECORDS SUMMARY | 2025-01-18 10:20 | XMS_ITS ---
Author Organization [facility] Address [address] [place] [address] Care Team Providers Care Public Address System Installer Name Role Phone Jamaal HAWTHORNE, Ludwig Primary Care Provider Huber Lebron Jr [phone] REASON FOR VISIT gerd,screening PROBLEMS Problem Type ICD Code Onset Dates Problem Status W/U Status Risk SNOMED Code Notes Problem Chronic GERD (K21.9) Active confirmed Gastroesophagea l reflux disease (disorder) (969748615) Encounters Encounter Location Date Provider Diagnosis [facility] Outpatient [address] [place] [id number] 12/06/2023 Huber Levy Jr Encounter for screening colonoscopy Z12.11 and Chronic GERD K21.9 ASSESSMENTS Encounter Date Diagnosis Assessment Notes Treatment Notes Treatment Clinical Notes 12/06/2023 Encounter for screening colonoscopy (ICD-10 - Z12.11) 12/06/2023 Chronic GERD (ICD-10 - K21.9) PLAN OF TREATMENT No Information
--- OUTSIDE RECORDS SUMMARY | 2025-01-18 10:20 | XMS_ITS | Data Portability ---
Author Organization [facility] [address] Address [address] [place] [address] Assessment No assessment recorded. Plan of Treatment Reminders Order Date Submit Date Provider Last Modified By Organization Details Last Modified Time Details Appointments None recorded. Lab urinalysis , dipstick 2023 024 [email or web address], [address] [place], [phone], 10:55:08 Referral None recorded. Procedures None recorded. Surgeries None recorded. Imaging XR, abdomen, 1 view 2023 024 [email or web address] [facility], [address] [place], [address], 11:45:55 Medication Orders magnesium citrate oral solution 2023 024 [id number], [address] [place], [place], [id number], 11:42:34 Patient TargetsNo targets recorded. Patient Instructions Encounter Date Encounter Id Patient Instructions Last Modified By Organization Details Last Modified Time 04/19/2024 [id number] constipation: ca re instructions [email or web address] Not available 04/19/2024 10:55:06 Based on your presentation and exam, you are being diagnosed with Constipation. These would be my recommendations to help with your symptoms. 1. Drink increased amount of fluids 2. Take Magnesium Citrate for the next 2 days 3. Heating pad for cramping. 4. If you have pressure in your rectum - sometimes a OTC enema will help. If you do not develop a bowel movement and feel better in 24 hours, then I advise going to the EMERGENCY DEPARTMENT I would go directly to the Emergency Room if you develop: 1. Distended abdomen that is very tender 2. Abdominal Pain 3. Vomiting more than 48 hours 4. Blood in stool 5. Fever > 100.5 Not available 04/19/2024 11:44:12 Assessment: Non-specific abdominal pain WITH no BM x 2 days in a well-appearing patient. No focal tenderness over McBurney's point to suggest acute appendicitis. History and exam not suggestive of perforated ulcer, cholecystitis, pyelonephritis, UTI, colitis, appendicitis, diverticulitis, ruptured AAA, ischemia, pathology or SBO. Plan: Symptomatic care, LAXATIVE trial, fiber, and 24 hour re-evaluation. Risks and benefits of sending to ER discussed, and shared decision to defer at this time. Additional verbal discharge instructions as well as ER precautions were reviewed, and patient is in agreement with the plan. [email or web address] Not available 04/19/2024 19:14:08 Reason for Referral None Reported. Results Created Date Observation Date Name Description Value Unit Range Abnormal Flag Note LastModifiedBy Organization Detail LastModifiedTime 04/19/2004/19/2024 urina lysis , dipst ick Unknown Analyte Yellow Not Available [address] [place], [phone], 04/19/2024 10:39:03 04/19/20 24 04/19/2024 urina lysis , dipst ick Unknown Analyte Slight ly Cloudy Not Available [address] [place], [address], 04/19/2024 10:39:03 04/19/20 24 04/19/2024 urina lysis , dipst ick Unknown Analyte Negati ve Not Available [address] [place], [address], 04/19/2024 10:39:03 04/19/20 24 04/19/2024 urina lysis , dipst ick Unknown Analyte Negati ve Not Available [address] [place], [address], 04/19/2024 10:39:03 04/19/20 24 04/19/2024 urina lysis , dipst ick Unknown Analyte Negati ve Not Available [address] [place], [address], 04/19/2024 10:39:03 04/19/20 24 04/19/2024 urina lysis , dipst ick Unknown Analyte 1.030 Not Available [address] [place] [address] [address] [place], [address], 04/19/2024 10:39:03 04/19/20 24 04/19/2024 urina lysis , dipst ick Unknown Analyte Negati ve Not Available [facility] [address] [place], [phone], 04/19/2024 10:39:03 04/19/20 24 04/19/2024 urina lysis , dipst ick Unknown Analyte 5.5 Not Available [address] [place] [address] [address] [place], [address], 04/19/2024 10:39:03 04/19/20 24 04/19/2024 urina lysis , dipst ick Unknown Analyte Negati ve Not Available [facility] [address] [place], [address], 04/19/2024 10:39:03 04/19/20 24 04/19/2024 urina lysis , dipst ick Unknown Analyte 0.2 E.U./d L Not Available [facility] [place], [address], 04/19/2024 10:39:03 04/19/20 24 04/19/2024 urina lysis , dipst ick Unknown Analyte Negati ve Not Available [address] [place], [address], 04/19/2024 10:39:03 04/19/20 24 04/19/2024 urina lysis , dipst ick Unknown Analyte Negati ve Not Available [address] [place], [address], 04/19/2024 10:39:03 04/19/20 24 04/19/2024 XR, abdom en, 1 view No observ ation record ed. [email or web address] [facility] [address] [place], [address], 04/19/2024 11:51:05 04/19/20 24 XR, abdom en, 1 view No observ ation record ed. [email or web address] [facility] [address] [place], [address], 04/19/2024 19:43:32 Result Notes None recorded. Problems Name Problem SNOMED Code Status Onset Date Resolution Date Notes Provider Name and Address Organization Details Recorded Time Hypertensive disorder 89157457 Active aSndra mujica PA - [facility] 10:34:41 Problem Notes None recorded. Procedures Surgical History Date Name Laterality Status Provider Name and Address Organization Details Recorded Time Appendectomy completed Sandra Lam PA - [facility] 04/19/2024 10:35:15 Imaging Results Imaging Date Name Status [facility]Modified by [facility] Details LastModified Time 04/19/2024 XR, abdomen, 1 view completed [facility] [address] [place], [address], 04/19/2024 11:51:05 04/19/2024 XR, abdomen, 1 view completed [facility] [address] [place], [address], 04/19/2024 19:43:32 Procedure Notes None recorded. Medical Equipment None Reported. Allergies No known drug allergies Medications Name Sig Start Date Stop Date Status Note LastModified by Organization Details LastModified Time amlodipine 10 mg tablet Take 1 tablet every day by oral route. active Not Available Not Available No t Available magnesium citrate oral solution Take 150 mL twice a day by oral route for 2 days. 024 active Not Available Not Available Not Avai lable Vitals Date Recorded Body height Body mass index (BMI) Body weight Oxygen saturation Oxygen saturation in Arterial blood by Pulse oximetry Heart rate Respiratory rate Body temperature Systolic blood pressure Diastolic blood pressure Provider Name and Address Organization Details Last Updated DateTime 167.64 cm 33.7 kg/m2 83444.8 1 g 98 % 98 % 65 /min 20 /min 97.4 [degF] 134 mm[Hg] 85 mm[Hg] Sandra Lam PA [facility] 10:33:33 Social History Question Answer Notes LastModified by Organizat ion Details LastModified Time Tobacco Smoking Status Never Smoker Sandra mujica PA - [facility] 04/19/2024 10:34:57 What Is Your Level Of Alcohol Consumption? None Information not available 04/19/2024 What Was The Date Of Your Most Recent Tobacco Screening? 04/19/2024 Information not available 04/19/2024 What Is Your Relationship Status? Information not available 04/19/2024 Do You Use Any Illicit Or Recreational Drugs? No Information not available 04/19/2024 Have You Recently Traveled Abroad? No Information not available 04/19/2024 Do You Or Have You Ever Used Any Other Forms Of Tobacco Or Nicotine? No Information not available 04/19/2024 Sex: Unknown Functional Status None recorded. Mental Status None recorded. Family History Relationship Description Onset Age of this Age Resolved Age Notes LastModified by Organization Details LastModified Time Father No current problems or disability Not available 04/19 10:34:46 Mother No current problems or disability Not available 05/30 /2024 10:34:46 Medical History No medical history recorded. Immunizations Vaccine Type Date Status Note Provider Nam e and Address Organization Details Recorded Time COVID-19, mRNA, LNP-S, PF, 100 mcg/0.5mL dose or 50 mcg/0.25mL dose 09/03/2022 completed Sandra Genaro null, PA - [facility] 04/19/2024 10:34:00 COVID-19, mRNA, LNP-S, PF, 30 mcg/0.3 mL dose 12/01/2020 completed Sandra Genaro null, PA - [facility] 04/19/2024 10:34:00 COVID-19, mRNA, LNP-S, PF, 30 mcg/0.3 mL dose 12/22/2020 completed Sandra Genaro null, PA - [facility] 04/19/2024 10:34:00 COVID-19, mRNA, LNP-S, PF, 30 mcg/0.3 mL dose 09/03/2021 completed Sandra Genaro null, PA - [facility] 04/19/2024 10:34:00 COVID-19, mRNA, LNP-S, PF, 30 mcg/0.3 mL dose, aravind-sucrose 03/08/2022 completed Sandra Genaro null, PA - [facility] 04/19/2024 10:34:00 COVID-19, mRNA, LNP-S, bivalent, PF, 30 mcg/0.3 mL dose 09/03/2022 completed Sandra Genaro null, PA - [facility] 04/19/2024 10:34:00 COVID-19, mRNA, LNP-S, PF, aravind-sucrose, 30 mcg/0.3 mL 08/13/2023 completed Sandra Genaro null, PA - [facility] 04/19/2024 10:34:00 Influenza, split virus, quadrivalent, PF 08/13/2023 completed Sandra Genaro null, PA - [facility] 04/19/2024 10:34:00 Influenza, split virus, quadrivalent, PF 09/03/2021 completed Sandra Genaro null, PA - [facility] 04/19/2024 10:34:00 Influenza, split virus, quadrivalent, PF 09/03/2022 completed [facility] Ad[facility] - [facility] 04/19/2024 10:34:00 Past Encounters Encounter ID Performer Location Encounter Start Date Encounter Closed Date Diagnosis/Indication Diagnosis SNOMED-CT Code Diagnosis ICD10 Code Diagnosis Note [id number] [address] [place] [address] 10/15/2020 08:17:18 10/15/2020 09:25:19 [id number] [address] [place] [address] 07/20/2020 11:19:38 07/20/2020 11:40:32 [id number] [address] [place] [address] 07/27/2015 13:16:39 07/27/2015 15:00:22 [id number] [facility] [address] [place] [address] 04/19/2024 10:13:27 04/19/2024 11:45:55 Low back pain 731601029 M54.50 Abdominal pain 73639716 R10.9 Acute constipation 31455 9006 K59.00 Health Concerns Section Related Observation LastModified by Organization Detai ls LastModified Time None Recorded Concern Status LastModified by Organization Details LastModified Time None Recorded Advance Directives Directive None Recorded Payers Encounter Date Sequence Insurance Name Policy Number Policy Llamas Covered Member ID Llamas Member ID Guarantor Name 07/20/2020 1 [facility] - DIRECT CONNECTORCARE TYPE I (HMO) [id number] Vidal Baca [id number] Vidal Baca 10/15/2020 1 [facility] [employer] TYPE I (HMO) [id number] Vidal Baca [id number] Vidal Baca 04/19/2024 1 [facility] (MEDICAID REPLACEMENT - HMO) [id number] Vidal Baca [id number] Vidal Baca Notes Date Note Type Note Provider Name and Address Organization Details Recorded Time 05/30/202 4 text/html ConstipationReported bypatient.Notes:63 y,o male pt with no significant medical problems presetns with no BM x 2 days. Has general but lower pain that is bilaterally and worse with movement. Pt denies fever, urinary sx's, N/V. CODI AJ [address] [place], [address], PA - [facility] 04/19/2024 19:14:27
--- OUTSIDE RECORDS SUMMARY | 2025-01-18 10:20 | XMS_ITS | Patient Health Record ---
Author Organization [facility] Address [address] [place] [phone] Care Team Providers Care Artistic Director Name Role Phone Ludwig Hinton MD Primary Care Provider Huber Lebron Jr Unavailable ALLERGIES No Known Allergies REASON FOR REFERRAL No Information MEDICATIONS Medication SIG (Take, Route, Frequency, Duration) Notes Start Date End Date Status Multi-Vitamins Activ e Spironolactone Activ e Carvedilol 3.125 MG 1 tablet with food Orally Twice a day Active Lovastatin 40 MG Oral for 30 A ctive Dulcolax (colon prep) 5 MG take at 3:00 p.m and 7:00p.m. Orally two tablets twice a day for one day for 1 day 10/31/2023 Active MiraLax (colon prep) 8.3 ounce ((238) grams mixed with Gatorade or Crystal Light orally begin at 5:00 p.m. the day before the procedure for 1 day 10/31/2023 Active Dicyclomine HCl 20 MG 1 tablet Orally 2- 4 times a day 12/03/2021 Active Pantoprazole Sodium 40 MG 1 tablet Orall y Once a day for 30 days 10/22/2020 Active Fluticasone Propionate Active amLODIPine Besylate Active MiraLax (colon prep) 17 GM/SCOOP mixed with Gatorade or Crystal Light Orally begin at 5:00 p.m. the day before the procedure for 1 day 10/31/2023 Active IMMUNIZATIONS Vaccine Route Administration Date Status Comme nts Influenza Unknown 09/03/2020 Administered Influenza Unknown 07/22/2021 Administered Influenza Unknown 10/21/2023 Administered SOCIAL HISTORY Sex Assigned At : Social History Observation Description Sex Assigned At Unknown PROBLEMS Problem Type ICD Code Onset Dates Problem Status W/U Status Risk SNOMED Code Notes Problem Colon cancer screening (Z12.11) Active confirmed 120009931 Problem Bloating (R14.0) Active confirmed 44901 9008 Problem Generalized abdominal pain (R10.84) Active confirmed 195449888 Problem Abdominal pain, left upper quadrant (R10.12) Active confirmed 628708638 Problem Abnormal pancreas function test (R94.8) Active confirmed 968801768 Problem Gastroesophageal reflux disease, unspecified whether esophagitis present (K21.9) Active confirmed 280409464 Problem Chronic GERD (K21.9) Active confirmed Gastroesophagea l reflux disease (disorder) (055919645) PLAN OF TREATMENT Pending Test Test Name Order Date CHEM 7 PROFILE 10/22/2020 LIVER PROFILE 10/22/2020 PSA, TOTAL SCREEN 10/22/2020 CBC w/o DIFF 10/22/2020 Future Test Test Name Order Date UPPER GI ENDOSCOPY 10/31/2023 COLONOSCOPY 10/31/2023 Insurance Providers Payer Name Payer Address Payer Phone Subscriber Number Group Number Insured Name Patient Relationship to Insured Coverage Start Date Coverage End Date [facility] [address] [facility] [place] [phone] [id number] MABEL KEYES Self - patient is the insured MEDICAL (GENERAL) HISTORY Medical History History ICD Code hypertension elevated cholesterol enlarged prostate upper endoscopy and colonosc opy in May 2012, [facility] both without significant pathology upper endoscopy 09/02 [facility] enter, unremarkable. Surgical History Surgery Date(Month/Year) appendectomy 2012
--- OUTSIDE RECORDS SUMMARY | 2025-01-18 10:20 | XMS_ITS ---
Author Organization [facility] Address [address] [place] [id number] Care Team Providers Care Mold Checker Name Role Phone Ludwig Hinton MD Primary Care Provider Pam Levy Jr, Huber Guardado REASON FOR VISIT bowel prep MEDICATIONS Medication SIG (Take, Route, Frequency, Duration) Notes Start Date End Date Status Dulcolax (colon prep) 5 MG take at 3:00 p.m and 7:00p.m. Orally two tablets twice a day for one day for 1 day 10/31/2023 Active MiraLax (colon prep) 8.3 ounce ((238) grams mixed with Gatorade or Crystal Light orally begin at 5:00 p.m. the day before the procedure for 1 day 10/31/2023 Active Encounters Encounter Location Date Provider Diagnosis [facility] [address] [id number] 10/31/2023 Huber Levy Jr PLAN OF TREATMENT Medication Medication Name Sig Start Date Stop Date Notes Dulcolax (colon prep) 5 MG take at 3:00 p.m and 7:00p.m. Orally two tablets twice a day for one day for 1 day 10/31/2023 MiraLax (colon prep) 8.3 oun ce ((238) grams mixed with Gatorade or Crystal Light orally begin at 5:00 p.m. the day before the procedure for 1 day 10/31/2023
== END 2025-01-18 10:04 | disposition home or self-care (01) ==
PROVIDERS: PCP Internal Medicine; Visit Provider Urology
DX: N52.9 Male erectile dysfunction, unspecified (principal); N46.9 Male infertility, unspecified
CPT/HCPCS: 99214

== ENCOUNTER → 2025-01-18 09:32 | Outpatient (BNVA) | payer OTHER, SELFPAY | PROVIDERS: PCP Internal Medicine; Visit Provider Urology | DX: N52.9 Male erectile dysfunction, unspecified (principal); N46.9 Male infertility, unspecified | CPT/HCPCS: 99212 ==